=== PATIENT | male | born 2000 | race Caucasian/White ===

== ENCOUNTER 2019-08-04 10:08 | Emergency (ER) | payer BC, SELFPAY ==
--- NOTE | ~2019-08-04 | US_ITS ---
EXAMINATION: US scrotum doppler DATE: 08/04/2019 11:00 INDICATION: Right testicular pain. TECHNIQUE: Grayscale and Doppler ultrasound images of the testes were obtained. COMPARISON: None. FINDINGS: The right testis measures 2.9 x 2.6 x 3.6 cm. The left testis measures 3.0 x 2.2 x 3.2 cm. There is normal vascular flow to both testes. The right epididymis is normal with normal vascular kwasi w. The left epididymis is normal with normal vascular flow. There is no varicocele or hydrocele. IMPRESSION: 1. Normal testes. Reviewed, dictated and finalized at location A. IMPRESSION: 1. Normal testes.
--- NOTE | ~2019-08-04 | CT_ITS ---
EXAMINATION: CT abdomen pelvis wo con DATE: 08/04/2019 10:37 INDICATION: Left flank pain. Hematuria. TECHNIQUE: Computed tomography (CT) of the abdomen and pelvis was performed without intravenous contr ast. Automated exposure control and iterative reconstruction technique were employed. The dose-length product was 192.72 mGy-cm. COMPARISON: None. FINDINGS: The visualized portions of the lung bases are clear without pneumonia or pleural effusion. The heart size is normal. No pericardial effusion. The liver, gallbladder, spleen, pancreas, adrenal glands, and kidneys are normal. There is no urolithiasis. There are no dilated loops of bowel. The ap pendix is normal. There are no pathologically enlarged lymph nodes. There is no free intraperitoneal fluid. There is mild thoracic spondylosis. IMPRESSION: 1. No urolithiasis. Reviewed, dictated and finalized at location A. IMPRESSION: 1. No urolithiasis.
--- NOTE | 2019-08-04 10:11 | ED.ABDPAIN ---
HPI - Abdominal Pain General Chief Complaint: Back Pain/Injury Stated Complaint: L flank pain Time Seen by Provider: 08/04/19 10:10 Source: patient Mode of arrival: ambulatory Limitations: no limitations History of Present Illness HPI narrative: Patient is a 19-year-old male who presents for evaluation of left-sided flank pain and right testicular pain. Patient reports intermittent symptoms over the past 2 weeks, worsening symptoms over the past day. Patient reports that initially the pain began in his right flank, now has migrated to the left flank, and is associated with a sharp, aching pain. No left testicular pain. Patient has noticed some hematuria. No testicular redness or swelling, he does report right-sided testicular pain today. No recent heavy lifting. No penile discharge or lesions. No history of sexually transmitted infection. No fever, patient does report some nausea without emesis. No cough, chest pain or shortness of breath. Patient reports intermittent history of loose stools, no history of constipation. Related Data Home Medications Medication Instructions Recorded Confirmed alprazolam 0.25 mg PO BID 08/04/19 08/04/19 Allergies Allergy/AdvReac Type Severity Reaction Status Date / Time No Known Allergies Allergy Verified 08/04/19 10:27 Review of Systems Review of Systems: Narrative: CONSTITUTIONAL: Denies fever, chills, or sweats. EYES: Denies visual changes, redness, or discharge. ENT: Denies rhinorrhea, congestion, sore throat, or otalgia. CARDIOVASCULAR: Denies chest pain, palpitations, or edema. RESPIRATORY: Denies cough or dyspnea. GASTROINTESTINAL: Reports left-sided flank pain, nausea, intermittent loose stools GENITOURINARY: Denies dysuria reports hematuria SKIN: Denies rash or itching. MUSCULOSKELETAL: Denies joint pain, or myalgia. NEUROLOGIC: Denies headache, numbness, or weakness. PSYCHIATRIC: History of anxiety. [facility] Past Medical History Medical History (Updated 08/04/19 @ 11:51 by Hellen Patel MD) Anxiety Surgical History Surgical History (Updated 08/04/19 @ 10:24 by Hellen Patel MD) No pertinent past surgical history Social History Social History (Updated 08/04/19 @ 10:24 by Hellen Patel MD) Smoking status: Current every day smoker Tobacco type: e-cigarettes/vaping Alcohol intake: current Substance use: never Gender identity (if verbalized by the patient): Male Exam Narrative: Exam Narrative: GENERAL: Awake, alert, conversant, mildly diaphoretic HEAD: Normocephalic, atraumatic. EYES: PERRLA and EOMI. ENT: Nares clear, no rhinorrhea or epistaxis. Mucous membranes moist. NECK: Supple. CHEST: No respiratory distress, breathing even and non labored HEART: Regular rate, sinus rhythm ABDOMEN:Non distended, tender in the left flank, left lower quadrant, no rebound, no guarding : Penis is circumcised. Glans unremarkable. No discharge or lesions. Right testes is tender to palpation, no edema or erythema. Does not appear torsed. Left testes is unremarkable without pain, erythema, edema. No edema or erythema. Bilateral inguinal lymphadenopathy. No glucose. No erythema. No hernia. EXTREMITIES: Normal range of motion. No edema. SKIN: Warm, dry, no rash. NEURO:No focal deficits. Alert and oriented x3 Course Vital Signs Vital signs: Vital Signs Temperature 37.0 C 08/04/19 10:22 Pulse Rate 95 08/04/19 10:22 Respiratory Rate 12 08/04/19 10:22 Blood Pressure 136/57 L 08/04/19 10:22 Pulse Oximetry 100 08/04/19 10:22 Temperature 37.0 C 08/04/19 10:22 Pulse Rate 54 L 08/04/19 11:40 Respiratory Rate 20 08/04/19 11:40 Blood Pressure 120/77 08/04/19 11:40 Pulse Oximetry 97 08/04/19 11:40 MDM - Abdominal Pain MDM Narrative Medical decision making narrative: At the time of initial assessment, ABCs are intact and vital signs are stable. Patient has mild left lower quadrant tenderness and left flank tenderne
[2019-08-04 10:22] VITALS: BP 136/57; PULSE 95; RESP 12; TEMP 37; O2SAT 100
--- NOTE | 2019-08-04 10:37 | PC.NURSE ---
informed patient that we need urine specimen, patient taken to radiology
[2019-08-04 10:40] LABS: Basophils Percent Auto 0.4 % (0.2-1.2); Eosinophils Absolute Auto 0.1 K/mm3 (0-0.3); Eosinophils Percent Auto 1.5 % (0-4.4); Hematocrit 45.1 % (42.0-52.0); Hemoglobin 15.3 g/dL (14.0-18.0); Immature Granulocyte Absolute 0.01 K/mm3 (0.00-0.031); Immature Granulocyte Percent A 0.1 % (0-0.5); Lymphocytes Absolute Auto 3.06 K/mm3 (0.9-3.2); Lymphocytes Percent Auto 42.9 % (18.3-44.2); Mean Corpuscular HGB Conc 33.9 g/dl (32-36); Mean Corpuscular Hemoglobin 32.3 pg (26-34); Mean Corpuscular Volume 95.1 fl (80-100); Mean Platelet Volume 9.2 fl (7.4-10.4); Monocytes Absolute Auto 0.6 K/mm3 (0.1-0.6); Monocytes Percent Auto 8.3 % (2.6-8.5); Neutrophils Absolute Auto 3.3 K/mm3 (1.3-6.7); Neutrophils Percent Auto 46.8 % (45.5-73.1); Platelet Count Result 239 k/mm3 (150-375); Red Blood Count 4.74 M/mm3 (4.6-6.20); Red Cell Distribution Width 11.6 % (11.5-14.5); White Blood Count 7.1 K/mm3 (4.5-10.0)
[2019-08-04 10:51] LABS: Alanine Aminotransferase 18 U/L (4-50); Albumin Level 5.2 g/dL (3.5-5.1); Alkaline Phosphatase 64 U/L (38-126); Aspartate Amino Transferase 26 U/L (17-59); Bilirubin,Total 1.1 mg/dL (0.2-1.3); Blood Urea Nitrogen 16 mg/dL (9-20); Calcium 10.3 mg/dL (8.4-10.2); Carbon Dioxide 29 mmol/L (22-30); Chloride 105 mmol/L (98-107); Estimated CRCL calculation 109 ml/min; Estimated Glomerular Filt Rate > 60; Glucose 88 mg/dL (75-110); Potassium 3.8 mmol/L (3.4-5.0); Sodium 141 mmol/L (137-145)
[2019-08-04] MEDS: SODIUM CHLORIDE 0.9% IV 1,000 ML 999 ML IV CONT (10:53)
[2019-08-04] MEDS: ONDANSETRON INJ 4 MG/2 ML VIAL IV PUSH (10:54)
[2019-08-04 11:40] VITALS: BP 120/77; PULSE 54; RESP 20; O2SAT 97
[2019-08-04 11:44] LABS: Add Urine Microscopic? YES; Appearance Urine Clear (Clear); Bacteria Urine Trace /hpf; Bilirubin Urine Negative (Negative); Blood Urine 1+ (Negative); Color Urine Yellow (Yellow); Glucose Urine UA Negative (Negative); Ketones Urine Negative (Negative); Leukocyte Esterase Ur Negative LEU/UL (Negative); Mucus Urine Heavy /lpf; Nitrate Urine Negative (Negative); Protein Urine Negative (Negative); Squamous Epithelial Cell Urine Rare /hpf (Few); Urobilinogen Urine Negative mg/dL (<2.0); WBC Urine 0-3 /hpf
[2019-08-04 12:04] VITALS: BP 117/77; PULSE 66; RESP 20; TEMP 36.7; O2SAT 98
== END 2019-08-04 12:06 | disposition home or self-care (01) ==
PROVIDERS: Emergency Provider Emergency Medicine
DX: R10.9 Unspecified abdominal pain (principal); R31.9 Hematuria, unspecified; F41.9 Anxiety disorder, unspecified
CPT/HCPCS: 36415; 74176; 76870; 80053; 81001; 85025; 87491; 87591; 93976; 96365; 96375; 99284; J0131; J2405; J7030